=== PATIENT | female | born 1990 | race Caucasian/White ===

== ENCOUNTER → 2023-10-15 07:39 | Outpatient (REF) | payer OTHER, SELFPAY | LOC: PNTC 07:39 | PROVIDERS: ATTENDING PHYSICIAN Advanced Practice Midwife | DX: Z36.0 Encounter for antenatal screening for chromosomal anomalies (principal); Z36.82 Encounter for antenatal screening for nuchal translucency | CPT/HCPCS: 76801; 76813 ==

== ENCOUNTER → 2023-12-09 06:54 | Outpatient (REF) | payer OTHER, SELFPAY | LOC: PNTC 06:54 | PROVIDERS: ATTENDING PHYSICIAN Advanced Practice Midwife | DX: O34.219 Maternal care for unspecified type scar from previous cesarean delivery (principal) | CPT/HCPCS: 76805 ==

== ENCOUNTER → 2024-01-16 06:47 | Outpatient (REF) | payer OTHER, SELFPAY | LOC: PNTC 06:47 | PROVIDERS: ATTENDING PHYSICIAN Obstetrics & Gynecology | DX: O43.113 Circumvallate placenta, third trimester (principal) | CPT/HCPCS: 76816 ==

== ENCOUNTER → 2024-02-27 16:11 | Outpatient (REF) | payer OTHER, SELFPAY | LOC: PNTC 16:11 | PROVIDERS: ATTENDING PHYSICIAN Obstetrics & Gynecology | DX: O43.113 Circumvallate placenta, third trimester (principal) | CPT/HCPCS: 76816 ==

== ENCOUNTER 2024-04-17 05:25 | Inpatient (IN) | payer OTHER, SELFPAY ==
[2024-04-17 05:39] VITALS: BP 124/77; BMI 25.7
[2024-04-17 06:00] LABS: Hematocrit 35.4 % (37.0-47.0); Mean Corp Hgb Conc. 33.9 g/dL (33.0-37.0); Mean Corpuscular Hgb 33.4 pg (27.0-31.0); Mean Corpuscular Volume 98.6 fL (81.0-99.0); Mean Platelet Volume 9.7 fL (7.4-10.4); Platelet Count 215 10^3/uL (130-400); Red Blood Cell Count 3.59 10^6/uL (4.20-5.40); White Blood Cell Count 8.7 10^3/uL (4.8-10.8)
[2024-04-17] MEDS: LR 1000 IV (07:07)
[2024-04-17] MEDS: ANCEF 10 IV (07:08)
[2024-04-17] MEDS: TYLENOL 1000 MG PO (07:08)
[2024-04-17] MEDS: BICITRA 30 ML PO (07:08)
[2024-04-17] MEDS: PITOCIN 30 UNITS/NSS 500 ML IV (08:40)
[2024-04-17] MEDS: ZOFRAN 4 MG IV (14:44)
[2024-04-17] MEDS: TORADOL 15 MG IV ×2 (14:45→21:22)
[2024-04-18] MEDS: TORADOL 15 MG IV ×2 (03:23→08:17)
[2024-04-18] MEDS: MYLICON 80 MG PO ×2 (03:37→08:17)
[2024-04-18 05:09] LABS: Hematocrit 30.6 % (37.0-47.0); Hemoglobin 10.1 g/dL (12.0-16.0); Mean Corpuscular Hgb 33.3 pg (27.0-31.0); Mean Platelet Volume 10.1 fL (7.4-10.4); Platelet Count 212 10^3/uL (130-400); Red Blood Cell Count 3.03 10^6/uL (4.20-5.40); Red Cell Dist. Width 14.3 % (11.5-14.5); White Blood Cell Count 12.9 10^3/uL (4.8-10.8)
[2024-04-18] MEDS: PRENATAL PLUS 1 TABLET PO (08:16)
[2024-04-18] MEDS: SENOKOT-S 1 TABLET PO (08:17)
[2024-04-18] MEDS: MOTRIN 600 MG PO ×2 (15:09→22:23)
[2024-04-18] MEDS: TYLENOL 650 MG PO ×2 (15:09→22:23)
--- NOTE | 2024-04-18 17:25 | W.PN.ANS.POP ---
Anesthesia Post Operative
- Anesthesia Post Op Note
Vital Signs Stable-See Nursing Note: Yes
Airway Patent: Yes
Adequate Pain Control: Yes
Change in Mental Status: No
Current Postoperative Nausea & Vomiting: No
Anesthesia Complications: No
General Anesthetic Recall: No
Unplanned Admission: No
Post Op Hydration Adequate: Yes
[2024-04-19] MEDS: MOTRIN 600 MG PO (05:44)
[2024-04-19] MEDS: TYLENOL 650 MG PO (05:45)
[2024-04-19] MEDS: PRENATAL PLUS PO (09:24)
--- NOTE | 2024-04-19 11:53 | W.DS.TRANS ---
DC Summary - Material Handler Floorperson
-
Discharge Instructions:
Discharge Diagnosis/Procedures delivered by section; mild
anemia
Diet Regular
Activity No strenuous activity
Driving Restrictions No driving for 2 weeks
Bathing Restrictions OK to Shower
Instructions:
Stand-Alone Forms: LDRP Delivery
Changes to Home Medications: No
Discharge Medications:
DC Medications w/original date entered in [email or web address]
prenat.vits,harini,frn-avea-nolup 1 tab PO DAILY Supplement 07/04/22
acetaminophen 325 mg tablet 650 mg (2 x 325 mg) PO Q4HPRN PRN mild pain #0 tabs 04/18/24
ibuprofen 600 mg tablet 600 mg PO Q6HPRN PRN cramps #0 tabs 04/18/24
Home Medication Changes
Pending Results: Yes
Additional Pending Results:
surgical pathology
Total time spent discharging patient (in min): 20
[2024-04-21 13:20] LABS: Syphilis/T. pallidum Ab Reflex Negative (Negative)
== END 2024-04-19 10:55 | disposition home or self-care (01) | DRG 788 ==
LOC: LDRP 05:25
PROVIDERS: ADMITTING PHYSICIAN Obstetrics & Gynecology
PROC: 10D00Z1 Extraction of Products of Conception, Low, Open Approach (ICD-10-PCS; 2024-04-17)
DX: O34.211 Maternal care for low transverse scar from previous cesarean delivery (principal); Z3A.39 39 weeks gestation of pregnancy; Z37.0 Single live birth; O90.81 Anemia of the puerperium; D64.9 Anemia, unspecified
CPT/HCPCS: 88307; 85027; 86780; 86850; 86900; 86901